=== PATIENT | male | born 1955 | race Caucasian/White ===

== ENCOUNTER 2016-09-01 09:58 | Day surgery (SDC) | payer MEDICARE, OTHER ==
--- NOTE | ~2016-09-01 | EGD ---
EGD REPORT [facility] [address] [address] NAME: LAURA HERNANDEZ : [birth year] [place] [facility] [place] [id number] AGE: 61 ADM/REG DATE : 09/01/16 MR#: [id number] REPORT SERV DATE: 09/01/16 DICTATED BY: AROLDO KENDRICK DATE: 09/01/16 REPORT STATUS : Draft TRANSCRIBED BY: [facility] DATE: 09/01/16 Endoscopy Center Patient Name: Laura Hernandez Date of : 1955 Attending MD: AROLDO KENDRICK MD Procedure Date No Time: 09/01/2016 Procedure: Colonoscopy Indications: High risk colon cancer surveillance: Personal history of colonic polyps Referring MD: SARA WINSTON MD Medicines: Propofol per Anesthesia Complications: No immediate complications. Procedure: Pre-Anesthesia Assessment: - ASA Grade Assessment: III - A patient with severe systemic disease. After I obtained informed consent, the scope was passed under direct vision. Throughout the procedure, the patient's blood pressure, pulse, and oxygen saturations were monitored continuously. The CF [id number] was introduced through the anus and advanced to 5 cm into the ileum. The colonoscopy was performed without difficulty. The patient tolerated the procedure well. The quality of the bowel preparation was adequate to identify polyps 6 mm and larger in size. Scope withdrawal time was 5 minutes. Findings: The terminal ileum appeared normal. Multiple small-mouthed diverticula were found in the sigmoid colon. The retroflexed view of the distal rectum and anal verge was normal and showed no anal or rectal abnormalities. Impression: - The examined portion of the ileum was normal. - Diverticulosis in the sigmoid colon. Recommendation: - Repeat colonoscopy in 5 years for surveillance. - After the procedure, if you experience any pain in abdomen or chest,shortness of breath,fever,chills,blood in stool,rectal bleeding,vomiting of any material,nausea,black stools or weakness or dizziness, GO TO THE EMERGENCY IMMEDIATELY!!!!!!!!! Procedure Code(s): --- Professional --- 85624, Colonoscopy, flexible, proximal to splenic flexure; diagnostic, with or without collection of EGD REPORT [place] [address] [place]. [address] NAME: LAURA HERNANDEZ : [birth year] STATUS : REG [facility]#: [id number] AGE: 61 ADM/REG DATE : 09/01/16 MR#: [id number] REPORT SERV DATE: 09/01/16 DICTATED BY: AROLDO KENDRICK. DATE: 09/01/16 REPORT STATUS : Draft TRANSCRIBED BY: [employer] DATE: 09/01/16 specimen(s) by brushing or washing, with or without colon decompression (separate procedure) Diagnosis Code(s): --- Professional --- K57.30, Diverticulosis of large intestine without perforation or abscess without bleeding Z86.010, Personal history of colonic polyps CPT copyright 2013 [employer]. All rights reserved. The codes documented in this report are preliminary and upon eating disorder psychologist review may be revised to meet current compliance requirements. Aroldo Kendrick MD AROLDO KENDRICK MD 09/01/2016 12:02 PM This report has been signed electronically. Number of Addenda: 0 Note Initiated On: 09/01/2016 11:43 AM Scope Withdrawal Time 0 hours 0 minutes 0 seconds [address] [place] [address]
[~2016-09-01 09:58] MED LIST: ALEVE220 MG PO; ALTACE10 MG PO; ASABAYER PO; BENEMID500 PO; CIP5 PO; COREG12 PO; CRESTOR5 MG PO; FERROUS SULF324 MG PO; GLUCPH PO; LODRANE OR; LOZOLTAB PO; MUCINEX600 MG PO; P20 PO; PRILO PO; PROAIR HFA INH; TRADJENTA5 MG PO; Z300 PO
== END 2016-09-01 23:59 | disposition home health service (06) ==
LOC: DMU 09:58
PROVIDERS: Internal Medicine Gastroenterology
PROC: 0DJD8ZZ Inspection of Lower Intestinal Tract, Via Natural or Artificial Opening Endoscopic (ICD-10-PCS; principal; 2016-09-01 13:00)
DX: Z12.11 Encounter for screening for malignant neoplasm of colon (principal); K57.30 Diverticulosis of large intestine without perforation or abscess without bleeding; I10 Essential (primary) hypertension; E11.9 Type 2 diabetes mellitus without complications; K21.9 Gastro-esophageal reflux disease without esophagitis; G47.33 Obstructive sleep apnea (adult) (pediatric); E78.00 Pure hypercholesterolemia, unspecified; F03.90 Unspecified dementia, unspecified severity, without behavioral disturbance, psychotic disturbance, mood disturbance, and anxiety; Z86.73 Personal history of transient ischemic attack (TIA), and cerebral infarction without residual deficits; Z86.010 Personal history of colon polyps; Z99.81 Dependence on supplemental oxygen
CPT/HCPCS: 82962